=== PATIENT | male | born 1955 | race Caucasian/White ===

== ENCOUNTER 2019-08-03 10:25 | Outpatient (CLI) | payer BC, SELFPAY ==
--- NOTE | ~2019-08-03 | XR_ITS ---
EXAMINATION: XR hip LT min 2V DATE: 08/03/2019 11:03 INDICATION: Left hip pain. TECHNIQUE: 2 views of left hip were obtained. COMPARISON: None. FINDINGS: Bone alignment is normal. No fracture. There is mild left hip osteoarthritis. IMPRESSION: 1. Mild left hip osteoarthritis. Reviewed, dictated and finalized at location A.
== END 2019-08-03 10:26 | disposition home or self-care (01) ==
LOC: CHSLAB 10:26 → CHSIMG 10:29
PROVIDERS: PCP Family Medicine; Visit Provider Family Medicine
DX: R09.89 Other specified symptoms and signs involving the circulatory and respiratory systems (principal); M25.552 Pain in left hip
CPT/HCPCS: 73502

== ENCOUNTER 2019-08-06 10:42 | Outpatient (CLI) | payer BC, SELFPAY ==
--- NOTE | ~2019-08-06 | US_ITS ---
EXAMINATION: US arterial ankle brachial ind DATE: 08/06/2019 12:09 INDICATION: Peripheral arterial disease. TECHNIQUE: Segmental pressures and plethysmographic and Doppler waveforms of the brachial and lower e xtremity arteries were obtained. COMPARISON: None. FINDINGS: Right and left brachial artery pressures of 145 mm Hg and 142 mm Hg, respectively, are concordant (no rmal difference <= 30 mmHg). The right ankle-brachial index (YANDEL) is 1.07 (normal >= 0.9-1.0). The right great toe-brachial index (TBI) is 0.73 (normal >= 0.65). Arterial Doppler waveforms are biphasic in posterior tibial artery an d biphasic in dorsalis pedis. The left YANDEL is 0.77. The left TBI is 0.47. Arterial Doppler waveforms are biphasic in posterior tibi al artery and monophasic and dorsalis pedis. IMPRESSION: 1. Mildly decreased left YANDEL, consistent with left-sided arterial occlusive disease. Reviewed, dictated and finalized at location A. IMPRESSION: 1. Mildly decreased left YANDEL, consistent with left-sided arterial occlusive dis ease.
== END 2019-08-06 10:43 | disposition home or self-care (01) ==
PROVIDERS: PCP Family Medicine; Visit Provider Family Medicine
DX: R09.89 Other specified symptoms and signs involving the circulatory and respiratory systems (principal)
CPT/HCPCS: 93922

== ENCOUNTER 2020-01-14 11:14 | Outpatient (CLI) | payer BC, SELFPAY ==
--- NOTE | ~2020-01-14 | XR_ITS ---
EXAMINATION: XR shoulder RT min 2V DATE: 01/14/2020 11:31 INDICATION: Right shoulder pain. TECHNIQUE: 4 views of right shoulder were obtained. COMPARISON: None. FINDINGS: Bone alignment is normal. No fracture. There is mild osteoarthritis of glenohumeral joint a nd acromioclavicular joint characterized by tiny osteophytes. IMPRESSION: 1. Mild polyarticular osteoarthritis. Reviewed, dictated and finalized at location B. WORKER
== END 2020-01-14 11:15 | disposition home or self-care (01) ==
LOC: CHSIMG 11:15
PROVIDERS: PCP Family Medicine; Visit Provider Family Medicine
DX: M25.511 Pain in right shoulder (principal)
CPT/HCPCS: 73030

== ENCOUNTER 2020-01-17 09:55 | Outpatient (RCR) | payer BC, SELFPAY ==
--- NOTE | 2020-01-17 10:55 | PTOPEVAL ---
Thank you for referring Roberto Syed to [facility].? The patient is scheduled to be seen for therapy? ____x/week for ___ weeks. Please review, sign, date and return this plan of care MATT. I agree with and certify that the following plan of care is medically necessary. Referring Physician Date Admitting Provider: Attending Provider: Antoni Barth MD Referring Provider: *PT Outpatient Evaluation Start: 01/17/20 10:04 Freq: Status: Active Protocol: Document 01/17/20 10:05 Kaitlin (Rec: 01/17/20 10:54 [facility] [id number]) Therapy Assessment Status Assessment Status Assessment Status Evaluation Evaluation Information Problem Diagnosis R shoulder pain Onset 01/15/20 Additional Evaluation Detail quick dash = 38% Subjective Information patient reports he injured his Query Text:As Reported By Patient/ R shoulder when lifting a Family large bag of concrete. he reports the pain is already about 50% better, but reports he is still having issues. he reports no injection or medications. he reports he did have an x-ray. he reports he has pain directly in the shoulder and has sharp pain with lifting his arm up. he reports no symptoms of radiculopathy down the arm. he reports he has pain increased in the R shoulder about 30-40 degrees infront of his body. he reports the injury occured about 1 week ago. Prior Level of Function Comments Additional Prior Level of Function prior to this new injury, he Comments reports some soreness at times in the shoulder, but nothing that would last more than a nights rest after work. Pain Assessment Timing of Pain Assessment Timing of Pain Assessment Assessment Pain Scale Pain Scale Used Numeric (1 - 10) Self Report Pain Assessment Right Shoulder(s) Reported Pain Level 2 Pain Frequency Acute,Chronic,Continuous Lowest Pain Intensity 2 Greatest Pain Intensity 10 Pain Score Pain Score 2: Self Report Interventions Used Interventions Used By Clinicians Activity or ADL's,Education, Environment Modification, Exercise,Heat Upper Extremity Range of Motion Scapu
== END 2020-02-14 08:38 | disposition home or self-care (01) ==
LOC: CHSPT 09:55
PROVIDERS: PCP Family Medicine; Visit Provider Family Medicine
DX: M25.511 Pain in right shoulder (principal)
CPT/HCPCS: 97014; 97110; 97140; 97161; G0283

== ENCOUNTER → 2020-04-01 17:08 | Outpatient (CLI) | payer BC, SELFPAY ==
--- NOTE | ~2020-04-01 | MR_ITS ---
EXAMINATION: MR shoulder RT wo con DATE: 04/01/2020 18:03 INDICATION: Right shoulder pain. TECHNIQUE: Magnetic resonance imaging (MRI) of the right shoulder was performed without intravenous c ontrast. Sequences included axial PD-weighted FS FSE, coronal oblique PD-weighted FS FSE, coronal obl ique T2-weighted FS FSE, sagittal PD-weighted FS FSE, and sagittal T1-weighted SE. COMPARISON: None. FINDINGS: Coracoacromial arch: The acromion undersurface is curved in morphology (type II). The coracoacromial ligament is normal. M oderate acromioclavicular osteoarthritis with prominent subarticular cystic changes at both sides of the joint space. Rotator cuff: Moderate supraspinatus and mild infraspinatus tendinopathy. There is partial thickness articular side d tear extending for approximately 1.6 similar AP along the superior and anterior aspect of the middl e facet footplates of the supraspinatus and conjoined portion of the supraspinatus and infraspinatus tendons. Throughout the majority of its length this involves approximately one half of the tendon thi ckness. 1.5 cm medial retraction of some of the torn articular sided fibers. The tear reaches full-th ickness for couple millimeter at the junction of the superior and middle facet footplates. Mild to mo derate subscapularis tendinopathy without discrete tear. The teres minor tendon is normal. Normal rot ator cuff muscle bulk and signal. Biceps tendon, glenoid labrum and glenohumeral cartilage: Moderate tendinopathy and longitudinal split tearing of the long head biceps tendon most prominent at the cephalad aspect of the intertubercular groove. There is a tear of the 12:30-10:30 position of th e superior to posterior superior glenoid labrum. Articular cartilage appears relatively preserved. Ti ny marginal osteophytes along the inferior glenoid. Fluid: Small glenohumeral joint effusion with mild synovitis at the axillary, posterior and subcoracoid rece sses.No loose osteochondral bodies. Additional fluid and moderate synovitis along the long head bicep s tendon sheath consistent with bicipital tenosynovitis. Small amount of fluid and moderate synovitis at the subacromial/subdeltoid bursa consistent with bursitis. Bones: Bone alignment is normal. No fracture or pathologic marrow replacing process. Mild cystic change at t he confluence of the superior facet of the greater tuberosity and the lateral rim of the intertubercu lar groove. IMPRESSION: 1. Mild to moderate rotator cuff tendinopathy with small full-thickness tear of the conjoined portion of the supraspinatus/infraspinatus tendons as part of a larger partial-thickness articular sided tea r of the more anterior supraspinatus tendon. 2. Moderate bicipital tenosynovitis with moderate tendinopathy and longitudinal split tearing of the long head biceps tendon. 3. Minimal glenohumeral osteoarthritis with tear of the superior to posterior superior glenoid labrum . 4. Moderate acromioclavicular osteoarthritis. 5. Moderate subacromial/subdeltoid bursitis. Reviewed, dictated and finalized at location B. [employer] IMPRESSION: 1. Mild to moderate rotator cuff tendinopathy with small full-thickness tear of the conjoined portion of the supraspinatus/infraspinatus tendons as part of a larger partial-thickness articular sided tear of the more anterior supraspinatu s tendon. 2. Moderate bicipital tenosynovitis with moderate tendinopathy and longitudinal split tearing of the long head biceps tendon. 3. Minimal glenohumeral osteoarthritis with tear of the superior to posterior s uperior glenoid labrum. 4. Moderate acromioclavicular osteoarthritis. 5. Moderate subacromial/subdeltoid bursitis.
== END ==
PROVIDERS: PCP Family Medicine; Visit Provider Family Medicine
DX: M19.011 Primary osteoarthritis, right shoulder (principal); M75.51 Bursitis of right shoulder; M75.21 Bicipital tendinitis, right shoulder; M75.101 Unspecified rotator cuff tear or rupture of right shoulder, not specified as traumatic
CPT/HCPCS: 73221

== ENCOUNTER 2020-06-28 11:19 | Outpatient (CLI) | payer BC, SELFPAY ==
[2020-06-28 12:04] LABS: SARS-CoV-2 RNA PCR Negative (Negative)
== END 2020-06-28 11:20 | disposition home or self-care (01) ==
LOC: CHSLAB 11:20
PROVIDERS: PCP Family Medicine; Visit Provider Family Medicine
DX: Z20.818 Contact with and (suspected) exposure to other bacterial communicable diseases (principal); Z20.822 Contact with and (suspected) exposure to COVID-19
CPT/HCPCS: C9803; U0003; U0005

== ENCOUNTER 2020-09-25 08:52 | Outpatient (RCR) | payer BC, SELFPAY ==
--- NOTE | 2020-09-25 09:57 | PTOPEVAL ---
Thank you for referring Roberto Syed to [facility].? The patient is scheduled to be seen for therapy? ____x/week for ___ weeks. Please review, sign, date and return this plan of care MATT. I agree with and certify that the following plan of care is medically necessary. Referring Physician Date Admitting Provider: Attending Provider: MARISELA WOODS Referring Provider: *PT Outpatient Evaluation Start: 09/25/20 08:56 Freq: Status: Active Protocol: Document 09/25/20 08:56 ACR (Rec: 09/25/20 09:56 [facility] [id number]) Therapy Assessment Status Assessment Status Assessment Status Evaluation Evaluation Information Problem Diagnosis R RTC repair Onset 07/01/20 Subjective Information Patient states he was loading Query Text:As Reported By Patient/ bags of cement where he tore Family his rotator cuff and had to undergo a RTC repair. Patient states he was in a sling for about a month after the surgery. Patient states he was told to only lift a coffee cup, but he lives alone and has to lift other things such as a laundry basket. Patient states that lifting is difficult, but does not have much difficulty otherwise. Patient states his goal for therapy is to get back to work safely. He has to be able to lift 85# for his job. 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
--- NOTE | 2020-10-29 10:06 | PTOPEVAL ---
Thank you for referring Roberto Syed to [facility].? The patient is scheduled to be seen for therapy? ____x/week for ___ weeks. Please review, sign, date and return this plan of care MATT. I agree with and certify that the following plan of care is medically necessary. Referring Physician Date Admitting Provider: Attending Provider: MARISELA WOODS Referring Provider: *PT Outpatient Evaluation Start: 09/25/20 08:56 Freq: Status: Active Protocol: Document 10/29/20 08:55 Kaitlin (Rec: 10/29/20 10:06 [facility] [id number]) Therapy Assessment Status Assessment Status Assessment Status Progress Evaluation Information Problem Diagnosis R RTC repair Onset 07/01/20 Additional Evaluation Detail quick dash = 0% functionally declined Subjective Information patient reports he feels good Query Text:As Reported By Patient/ this date. he reports he Family returns to the MD next week when he is hoping to have his lifting restriction assesed and increased. he reports he has no pain in the R shoulder. he reports he still feels weak in the R shoulder. Pain Assessment Timing of Pain Assessment Timing of Pain Assessment Assessment Self Report Self Report Pain Level 0 Pain Score Pain Score 0: Self Report Upper Extremity Range of Motion Scapular/ Shoulder Range of Motion Left Shoulder Flexion - Active 165 Shoulder Medial Rotation - Active 70 Shoulder Lateral Rotation - Active 85 Scapular/Shoulder Range of Motion patient presents with full Comments functional arom reaching overhead, behind head to the upper thoracic spine, and behind back to the lower/ middle thoracic spine. Upper Extremity Muscle Strength Testing Scapular/Shoulder Right Shoulder Flexion Strength 4- Good - Shoulder Abduction Strength 4- Good - Shoulder Medial Rotation Strength 4+ Good + Shoulder Lateral Rotation Strength 4 Good Posture Posture Sitting Position Additional Posture Comments R shoulder elevation with shoudler flexion and abduction mmt. General Exercise General Exercises Exercise Description - UBE 8 minutes fwd and rev Query Text:Record Sets, Reps, with heat on R shoulder level Resistance, and Position 2 - supine shoulder flexion 2# x20 - supine press up 2# x
== END 2020-12-03 13:31 | disposition home or self-care (01) ==
LOC: CHSPT 08:52
DX: S46.011D Strain of muscle(s) and tendon(s) of the rotator cuff of right shoulder, subsequent encounter (principal); S46.211D Strain of muscle, fascia and tendon of other parts of biceps, right arm, subsequent encounter; M75.41 Impingement syndrome of right shoulder
CPT/HCPCS: 97110; 97161

== ENCOUNTER → 2021-04-03 02:50 | Outpatient (CLI) | payer BC, SELFPAY ==
[2021-04-03 18:24] LABS: SARS-CoV-2 RNA PCR Negative
== END ==
PROVIDERS: PCP Family Medicine; Visit Provider Internal Medicine Gastroenterology
DX: Z01.812 Encounter for preprocedural laboratory examination (principal); Z20.822 Contact with and (suspected) exposure to COVID-19
CPT/HCPCS: C9803; U0003; U0005

== ENCOUNTER 2021-04-06 00:56 | Day surgery (SDC) | payer BC, SELFPAY ==
[2021-04-02 11:14] VITALS: BMI 20.3
[2021-04-06 08:35] VITALS: BP 136/79; PULSE 80; RESP 18; TEMP 36.4; O2SAT 99; BMI 19.3
[2021-04-06] MEDS: LACTATED RINGERS 1,000 ML 150 ML IV CONT (08:46)
--- NOTE | 2021-04-06 08:46 | P.PNAN_ITS ---
Anes - Initial Pre Proc Eval Procedure: Operation Date: 04/06/21 09:30 Proposed Procedures p Colonoscopy - Georges Jacobson MD Date/Time: 04/06/21 08:46 Surgeon: Georges Jacobson MD Pre Op Diagnosis: Rectal bleeding Patient Data Age: 65 Gender: M Height: 1.75 m Weight: 59.2 kg Last Vital Signs Temp 36.4 C 04/06/21 08:35 Pulse 80 04/06/21 08:35 Resp 18 04/06/21 08:35 BP 136/79 04/06/21 08:35 Pulse Ox 99 04/06/21 08:35 Allergies Allergy/AdvReac Type Severity Reaction Status Date / Time No Known Allergies Allergy Verified 04/06/21 08:35 Home Medications Medication Instructions Recorded Confirmed Type atorvastatin 40 mg tablet 40 mg PO DAILY 03/24/21 04/02/21 History cilostazol 100 mg tablet 100 mg PO BID 03/24/21 04/02/21 History metoprolol succinate 25 mg 25 mg PO QPM 03/24/21 04/02/21 History tablet,extended release 24 hr clopidogrel 75 mg PO DAILY 04/02/21 04/02/21 History Patient hx anesthesia problems: none Family hx anesthesia problems: none Results Review: All pre-operative results and documents have been reviewed as part of the pre-operative evaluation. [facility] Past Medical History Medical History Arthritis Blood in stool History of hemorrhoids Hypertension Surgical History Surgical History History of colonoscopy Family History Family History Mother Cancer Social History Social History Smoking packs per day: 1.5 Smoking cigarettes per day: 30.0 Years smoked: 50 Smoking pack-years: 75.00 Smoking status: Heavy tobacco smoker Tobacco type: cigarettes Alcohol intake: current Drinks per week: 12 Alcohol use details: Beer Substance use: never Substance use type: does not use Living arrangements: with family Spiritual care concerns: No Anes - Eval Final PreProcedure Day of Procedure 04/06/21 08:46 Patient weight: thin Heart: regular rate and rhythm Lungs: decreased breath sounds and wheezes Airway: Mallampati scale class II Neurological: alert and oriented Last oral intake: >/= 8 hours ASA classification: III Emergent: no Anesthetic plan: proceed Anesthesia type and monitoring: general GIVS and standard monitoring Results Review: All pre-operative results and documents have been reviewed as part of the pre-operative evaluation. Informed Consent: The patient's anesthetic plan and its attendant risks and benefits were discussed with the patient/family/POA. Questions were solicited and answers provided to the satisfaction of the patient/family/POA.
--- NOTE | 2021-04-06 09:09 | WPDHPUPDATE1 ---
History and Physical Update Update Date/Time: 04/06/21 09:09 History and Physical has been reviewed, including an updated exam of the patient. There are NO changes in the patient's condition. Risks, benefits, and alternatives have been discussed and questions answered. Patient agrees to proceed with procedure.
[2021-04-06 09:38] VITALS: BP 107/63; PULSE 80; RESP 17; O2SAT 99
[2021-04-06 09:48] VITALS: BP 142/81; PULSE 86; RESP 20; O2SAT 95
[2021-04-06 09:58] VITALS: BP 155/85; PULSE 80; RESP 22; O2SAT 100
== END 2021-04-06 10:02 | disposition home or self-care (01) ==
PROVIDERS: PCP Family Medicine; Visit Provider Internal Medicine Gastroenterology
PROC: 0DJD8ZZ Inspection of Lower Intestinal Tract, Via Natural or Artificial Opening Endoscopic (ICD-10-PCS; CPT 45378; principal; 2021-04-06 09:30)
DX: Z12.11 Encounter for screening for malignant neoplasm of colon (principal); K92.1 Melena; D12.3 Benign neoplasm of transverse colon; K63.5 Polyp of colon; K57.30 Diverticulosis of large intestine without perforation or abscess without bleeding; K64.8 Other hemorrhoids; I10 Essential (primary) hypertension; Z79.02 Long term (current) use of antithrombotics/antiplatelets; F17.210 Nicotine dependence, cigarettes, uncomplicated
CPT/HCPCS: 45385; 88305; J2704; J7120

== ENCOUNTER 2021-11-02 11:00 | Outpatient (CLI) | payer BC, SELFPAY ==
--- NOTE | ~2021-11-02 | XR_ITS ---
EXAMINATION:XR cervical spine 4-5V DATE: 11/02/2021 11:26 INDICATION: Neck pain radiating to the shoulders. TECHNIQUE: AP, lateral, odontoid and left and right oblique views of the cervical spine were obtained . COMPARISON: 04/06/2018 FINDINGS: Interval increase in now 3-4 mm anterolisthesis of C4 on C5. Unchanged 2 mm retrolisthesis C6 with re spect to both C5 and C7. Odontoid is intact. Normal atlantoaxial interval. Vertebral body heights ar e normal. Moderate disc height loss at C6-C7, mild to moderate disc height loss at C5-C6 and mild dis c height loss at C4-C5 and C7-T1. Multilevel moderate to severe cervical facet osteoarthritis most pr ominent on the left at C3-C4 and C4-C5 and on the right at C4-C5 through C6-C7. Multilevel moderate t o severe cervical uncovertebral osteoarthritis. . This results in multilevel mild bilateral neural fo raminal stenosis. Atherosclerotic calcifications at the bilateral carotid bulbs. Prevertebral soft ti ssues are normal. Visualized apices of lungs are clear. IMPRESSION: 1. Moderate cervical spondylosis including grade 1 spondylolisthesis slightly increased at C4-C5 and unchanged at C5-6 and C6-C7. Reviewed, dictated and finalized at location A. IMPRESSION: 1. Moderate cervical spondylosis including grade 1 spondylolisthesis slightly i ncreased at C4-C5 and unchanged at C5-6 and C6-C7.
== END 2021-11-02 11:01 | disposition home or self-care (01) ==
LOC: CHSIMG 11:02
PROVIDERS: PCP Family Medicine; Visit Provider Family Medicine
DX: M54.2 Cervicalgia (principal)
CPT/HCPCS: 72050

== ENCOUNTER 2021-11-04 11:00 | Outpatient (RCR) | payer BC, SELFPAY ==
--- NOTE | 2021-11-04 11:39 | PTOPEVAL1 ---
Evaluation Information Assessment Status Evaluation Diagnosis neck pain/cerviclagia Onset 11/02/21 Subjective Information patient reports he had had a pinched nerve in the neck in the past that he had surgery to fix. he reports this wa yeasrs ago and he has felt good since. he reports he is unsure what kind of surgery he had performance. he reports a few months ago he began having a similar feeling in the neck again. he reports he does have some tightness in the L hand (middle and ring finger) at times. he reports he has had xrays of the cervical spine and reports he has DDD of the cervical spine. he reports he was given oral meds for his symptoms and sent to PT. he reports he has increase pain with driving when turning to look behind him both sides. he reports he is still working at the [employer]. Reported Pain Level Pain Score 2: Self Report Assessment PT Clinical Summary mr. saeed presents to skilled PT services for evaluation and treatment of cervical pain. he presents this date with signs and symptoms of DDD/ spondylosis of the cervical spine with worsening arthritis on the L side. he would do well to attend and participate in skilled PT to improve his objective/functional deficits and progress towards a return to his prior level functional activity performance/quality of life. Plan of Care Interventions Electrical Stimulation,Hot Pack/Cold Pack,Manual Therapy,Mechanical Traction,Patient/Caregiver Educati,Therapeutic Activities,Therapeutic Exercise PT Services Indicated Yes Treatment Frequency and 3x weekly for 12 visits Duration These treatments will address the objective and functional deficits as defined above. The patient will be advanced safely and appropriately in order for the patient to progress towards his/her prior level of function. Additional exercises will be introduced and as well as a comprehensive home exercise program upon discharge, if needed, ?to ensure carryover of functional gains achieved in the clinic. This treatment plan has been reviewed and agreement upon by the patient.
== END 2021-12-04 15:27 | disposition home or self-care (01) ==
LOC: CHSPT 11:00
PROVIDERS: PCP Family Medicine; Visit Provider Family Medicine
DX: M54.2 Cervicalgia (principal)
CPT/HCPCS: 97012; 97014; 97110; 97140; 97161; G0283

== ENCOUNTER 2021-11-11 16:00 | Outpatient (CLI) | payer BC, SELFPAY ==
--- NOTE | ~2021-11-11 | CT_ITS ---
EXAMINATION: CT lung screening DATE: 11/11/2021 16:19 INDICATION: Personal history of nicotine dependence, current smoker with 60 pack year history TECHNIQUE: Computed tomography (CT) of the chest was performed without intravenous contrast. The dose -length product (DLP) was 77.01 mGy-cm. Automated exposure control and iterative reconstruction techn [employer] were employed. COMPARISON: 03/14/2019 FINDINGS: There is a stable 4 mm nodule of the right lower lobe. There is moderate emphysema. The roxanne gs are free of acute opacities. No pleural effusion or pneumothorax. No pathologically enlarged thora cic lymph nodes are identified. The heart size is normal. Calcified coronary artery atherosclerosis i s noted. There is mild thoracic spondylosis. IMPRESSION: 1. Lung-RADS category 2: Benign appearance or behavior. Continue annual screening with noncontrast lo w-dose chest CT in 12 months. Reviewed, dictated and finalized at location B. IMPRESSION: 1. Lung-RADS category 2: Benign appearance or behavior. Continue annual screeni ng with noncontrast low-dose chest CT in 12 months.
== END 2021-11-11 16:01 | disposition home or self-care (01) ==
LOC: CHSIMG 16:02
PROVIDERS: PCP Family Medicine; Visit Provider Family Medicine
DX: Z12.2 Encounter for screening for malignant neoplasm of respiratory organs (principal); Z87.891 Personal history of nicotine dependence
CPT/HCPCS: 71271

== ENCOUNTER 2022-01-09 09:19 | Outpatient (CLI) | payer BC, SELFPAY ==
--- NOTE | ~2022-01-09 | MR_ITS ---
EXAMINATION: MR cervical spine w con DATE: 01/09/2022 10:23 INDICATION: Neck pain. TECHNIQUE: Magnetic resonance imaging (MRI) of the cervical spine was performed with 10 mL MultiHance intravenous contrast. COMPARISON: Cervical spine radiographs 11/02/2021 FINDINGS: There is 12 degrees levoscoliosis of cervical spine. There is 2 mm anterolisthesis of C4 on C5 and C5 and C6 and 2 mm retrolisthesis of C7 on T1. Vertebral body heights are normal. There is en hancement in anterior C1 and in the dens, likely secondary to severe osteoarthritis of anterior atlan toaxial joint. There is mildly decreased disc height at C4-C5 and C5-C6 and moderately decreased disc height at C6-C7. The following disc levels are specifically discussed: C2-C3: There is a central protrusion. There is mild left uncovertebral joint osteoarthritis. There is moderate right and severe left facet joint osteoarthritis. There is mild left neural foraminal steno sis. There is no central canal stenosis. C3-C4: The disc does not extend beyond the endplate margin. There is mild bilateral uncovertebral cristian nt osteoarthritis. There is moderate bilateral facet joint hypertrophy. There is mild bilateral neura l foraminal stenosis. There is no central canal stenosis. C4-C5: The disc is bulging. There is mild bilateral uncovertebral joint osteoarthritis. There is mild bilateral facet joint hypertrophy. There is mild bilateral neural foraminal stenosis. There is mild central canal stenosis. C5-C6: The disc is bulging. There is mild bilateral uncovertebral joint osteoarthritis. There is mode rate bilateral facet joint osteoarthritis. There is mild bilateral neural foraminal stenosis. There i s mild central canal stenosis. C6-C7: The disc is bulging. There is severe bilateral uncovertebral joint osteoarthritis. There is mi ld bilateral facet joint osteoarthritis. There is mild bilateral neural foraminal stenosis. There is mild central canal stenosis. C7-T1: The disc does not extend beyond the endplate margin. There is no uncovertebral joint osteoarth ritis. There is severe right and moderate left facet joint osteoarthritis. There is mild bilateral ne ural foraminal stenosis. There is no central canal stenosis. IMPRESSION: 1. Moderate cervical spondylosis. Reviewed, dictated and finalized at location A. [employer] SUPER[employer]
== END 2022-01-09 09:20 | disposition home or self-care (01) ==
LOC: CHSIMG 09:20
PROVIDERS: PCP Family Medicine; Visit Provider Family Medicine
DX: M54.2 Cervicalgia (principal)
CPT/HCPCS: 72142; A9577

== ENCOUNTER 2022-02-22 08:33 | Outpatient (CLI) | payer BC, SELFPAY ==
--- NOTE | ~2022-02-22 | CT_ITS ---
EXAMINATION: CT cervical spine wo con DATE: 02/22/2022 09:22 INDICATION: Decreased range of motion of cervical spine. TECHNIQUE: Computed tomography (CT) of the cervical spine was performed without intravenous contrast. Automated exposure control and iterative reconstruction technique were employed. The dose-length pro duct was 266.18 mGy-cm. COMPARISON: Cervical spine radiographs 09/22/2021 FINDINGS: Emphysema is noted. There is 12 degrees levoscoliosis of cervical spine. There is 3 mm ante rolisthesis of C4 on C5 and C5 on C6 and 2 mm retrolisthesis of C6 on C7. There is mild chronic anter ior wedging of C7 vertebral body. There is mildly decreased disc height at C3-C4, moderately decrease d disc height at C4-C5 and C5-C6, and severely decreased disc height at C6-C7. The following disc lev els are specifically discussed: C2-C3: There is mild right and severe left uncovertebral joint osteoarthritis. There is severe bilate ral facet joint osteoarthritis. There is mild left neural foraminal stenosis. There is no central can al stenosis. C3-C4: There is mild right and severe left uncovertebral joint osteoarthritis. There is severe bilate ral facet joint osteoarthritis. There is mild bilateral neural foraminal stenosis. There is no centra l canal stenosis. C4-C5: There is severe right and mild left uncovertebral joint osteoarthritis. There is severe bilate ral facet joint osteoarthritis. There is mild bilateral neural foraminal stenosis. There is mild cent ral canal stenosis. C5-C6: There is severe right and mild left uncovertebral joint osteoarthritis. There is severe bilate ral facet joint osteoarthritis. There is moderate right and mild left neural foraminal stenosis. Ther e is mild central canal stenosis. C6-C7: There is severe bilateral uncovertebral joint osteoarthritis. There is severe right and modera te left facet joint osteoarthritis. There is mild bilateral neural foraminal stenosis. There is mild central canal stenosis. C7-T1: There is no uncovertebral joint osteoarthritis. There is severe bilateral facet joint osteoart hritis. There is mild right neural foraminal stenosis. There is no central canal stenosis. IMPRESSION: 1. Severe cervical spondylosis. 2. Cervical levoscoliosis. Reviewed, dictated and finalized at location A. ORT COORDINATOR
--- NOTE | ~2022-02-22 | XR_ITS ---
Cervical Spine: Lateral flexion-extension views were performed. COMPARISON: 11/02/2021 Clinical History: Decreased range of motion Findings: Stable grade 1 anterolisthesis of C4 over C5. Stable minimal grade 1 retrolisthesis of C5 o bharat C6 and C6 over C7. No definite instability seen on flexion or extension. The intervertebral disc spaces are well maintained. Pre-vertebral soft tissues are unremarkable. Impression: Stable subluxations in the cervical spine, as detailed above. No definite instability seen on flexion or extension. Reviewed, dictated and finalized at location [] TWISTING MACHINE OPERATOR Impression: Stable subluxations in the cervical spine, as detailed above. No definite insta bility seen on flexion or extension.
== END 2022-02-22 08:34 | disposition home or self-care (01) ==
LOC: CHSIMG 08:34
PROVIDERS: PCP Family Medicine; Visit Provider Neurological Surgery
DX: M54.2 Cervicalgia (principal); M47.812 Spondylosis without myelopathy or radiculopathy, cervical region; M41.82 Other forms of scoliosis, cervical region
CPT/HCPCS: 72040; 72125

== ENCOUNTER 2022-03-20 06:42 | Outpatient (CLI) | payer BC, SELFPAY ==
--- NOTE | ~2022-03-20 | MR_ITS ---
MRI of the cervical spine Clinical History: Cervicalgia Technique: Axial T2-weighted and gradient images, and sagittal T1-weighted, T2-weighted, and STIR lashon ges were acquired. COMPARISON: 01/09/2022 Findings: No acute fracture identified. Osseous alignment is similar to prior exam. Stable 3 mm anter olisthesis of C4 over C5. Stable minimal grade 1 anterolisthesis of C5 over C6. No suspicious bone ma rrow signal abnormality identified. At C2-C3, there is no significant disc bulge or herniation. No spinal canal stenosis, cord compressio n, or neural foraminal narrowing. There is mild left facet joint arthropathy. At C3-C4, there is mild left facet arthropathy. No disc bulge or herniation. No spinal canal stenosis , cord compression, or definite neural foraminal narrowing. At C4-C5, there is mild disc uncovering with mild facet arthropathy. No eileen spinal canal stenosis o r cord compression. There is probable mild bilateral neural foraminal narrowing. At C5-C6, there is mild disc bulge which mildly flattens the ventral cord. Probable minimal bilateral neural foraminal narrowing. At C6-C7, there is minimal disc bulge with mild canal stenosis but no eileen cord compression. Probabl e minimal bilateral neural foraminal narrowing. No abnormal signal seen in the spinal cord. Paravertebral soft tissues are unremarkable. Impression: Mild degenerative spondylosis, as detailed above. 3 mm anterolisthesis of C4 over C5. Additional minimal grade 1 anterolisthesis of C5 over C6. Reviewed, dictated and finalized at [facility]. ICATION DEVELOPMENT INTERN Impression: Mild degenerative spondylosis, as detailed above. 3 mm anterolisthesis of C4 over C5. Additional minimal grade 1 anterolisthesis of C5 over C6.
== END 2022-03-20 06:43 | disposition home or self-care (01) ==
PROVIDERS: PCP Family Medicine; Visit Provider Neurological Surgery
DX: M54.2 Cervicalgia (principal); M43.02 Spondylolysis, cervical region; M43.12 Spondylolisthesis, cervical region
CPT/HCPCS: 72141

== ENCOUNTER 2023-05-20 14:09 | Outpatient (CLI) | payer MEDICARE, SELFPAY ==
--- NOTE | ~2023-05-20 | CT_ITS ---
EXAMINATION: CT lung screening DATE: 05/20/2023 14:29 INDICATION: Personal history of nicotine dependence TECHNIQUE: Computed tomography (CT) of the chest was performed without intravenous contrast. Addition al 3D reconstructions utilizing coronal maximum intensity projection (MIP) were performed. Automated exposure control and iterative reconstruction technique were employed. The dose-length product was 73 .58 mGy-cm. COMPARISON: 11/11/2021 FINDINGS: Mild to moderate emphysema with minimal biapical pleural-parenchymal scarring. Again seen are a few s mall calcified pulmonary nodules in the right lung consistent with old granulomatous disease. No inte rval change in a noncalcified 4 mm right lower lobe nodule most likely sequela of old granulomatous d isease. No new or enlarging pulmonary nodules identified. No pneumonia, pulmonary edema or pleural ef fusion. Heart size is normal. No pericardial effusion. Atherosclerotic coronary artery calcifications . Thoracic aorta is normal in caliber. No pathologically enlarged abdominal or pelvic lymphadenopathy . 1.8 cm low-attenuation right renal cyst. Mild to moderate thoracic spondylosis. IMPRESSION: 1. Lung-RADS category 2: Benign appearance or behavior. Continue annual screening with noncontrast lo w-dose chest CT in 12 months. Reviewed, dictated and finalized at location B. IMPRESSION: 1. Lung-RADS category 2: Benign appearance or behavior. Continue annual screeni ng with noncontrast low-dose chest CT in 12 months.
== END 2023-05-20 14:10 | disposition home or self-care (01) ==
LOC: CHSIMG 14:12
PROVIDERS: PCP Family Medicine; Visit Provider Family Medicine
DX: Z12.2 Encounter for screening for malignant neoplasm of respiratory organs (principal); Z87.891 Personal history of nicotine dependence
CPT/HCPCS: 71271

== ENCOUNTER 2023-07-09 08:11 | Outpatient (CLI) | payer MEDICARE, SELFPAY ==
--- NOTE | 2023-07-09 08:29 | ECG_ITS ---
SEE SCANNED COPY FOR CONFIRMED REPORT MTDD
== END 2023-07-09 08:12 | disposition home or self-care (01) ==
PROVIDERS: PCP Family Medicine; Visit Provider Anesthesiology
DX: I10 Essential (primary) hypertension (principal); Z01.818 Encounter for other preprocedural examination
CPT/HCPCS: 93005

== ENCOUNTER 2023-07-11 01:34 | Day surgery (SDC) | payer MEDICARE, SELFPAY ==
--- NOTE | 2023-07-08 11:05 | PC.NURSE ---
Report to the Outpatient Waiting Room, entrance under the green pavilion located off [facility], at time __0700 on date __07/11/23 . Planned Procedure Time: _0900 . Time changes happen often and if your time is changed the preop area will call you the afternoon before. - You and your visitor will be asked to self-screen and do not enter if you have any COVID symptoms. - A mask is optional within the hospital at this time. Patients may have clear liquids (water, carbonated beverages, clear teas, apple juice) until 3 hours prior to surgery( 6:00 AM) with a maximum of 20 ounces. - No food from midnight until time of surgery - Infants may have breast milk until 4 hours before surgery, formula 6 hours prior to surgery. - Children will be allowed to drink immediately following surgery. If applicable, please bring a bottle or sippy cup to assist with drinking. Juice, water, soda, and popsicles are readily available. For infants on formula, please bring formula the day of surgery. Pacifiers are allowed. Take the following medications with a SIP of water the morning of surgery: ___NONE DO NOT STOP ANY OF YOUR OTHER PRESCRIPTION MEDICATIONS PRIOR TO SURGERY ?EXCEPT THE FOLLOWING Medications to discontinue per physician NONE Please no make-up, nail greenlandic, hairspray, perfume, deodorant, or body powder the day of surgery. No jewelry (including any body piercings) or valuables the day of surgery, leave them at home. Please take a shower or bath the night before, or the morning of, surgery with an antibacterial soap. Wear comfortable, loose fitting clothing. Children are encouraged to wear pajamas. - Jewelry must be removed prior to entering the operating room. Rings and piercings that are not removed may be cut off. - The hospital will not accept responsibility for valuables. - Please leave all valuables, including medications, at home the day of surgery. If you are going home after surgery, a licensed hi low truck driver must drive you home. - NO public transportation without another adult if you receive anesthesia. - We recommend that an adult stay with you for 24 hours following discharge. - We also recommend that you do not drive, make important decision, drink alcoholic beverages, or take any drugs that were not prescribed by your health care provider for at least 24 hours after your discharge time. Follow any additional instructions given to you from your surgeon. If you or anyone in your household have experienced Covid symptoms in the past week, please notify your surgeon or the nurse liaison at the phone number below for possible testing. Telephone instructions given to __PATIENT and asked if any additional questions and then verbalized understanding. Patient advised to call surgeon office or pre surgery nurse liaison [phone] if any additional questions.
[2023-07-08 11:11] VITALS: BMI 19.8
[2023-07-11] VITALS (9 sets, daily range): BP systolic 131–165; BP diastolic 55–74; PULSE 60–77; RESP 10–18; TEMP 36.1–36.3; O2SAT 94–100
[2023-07-11] MEDS: ACETAMINOPHEN 500 MG TABLET 1000 MG PO (07:30)
[2023-07-11] MEDS: LACTATED RINGERS 1,000 ML 30 ML IV CONT ×2 (07:30→09:59)
--- NOTE | 2023-07-11 07:48 | P.PNAN_ITS ---
Anes - Initial Pre Proc Eval Procedure: Operation Date: 07/11/23 09:00 Proposed Procedures p Septoplasty, Bilateral Turbinate Reduction, Left Nasal Valve Repair - Russ Aguilar MD Date/Time: 07/11/23 07:48 Surgeon: Russ Aguilar MD Pre Op Diagnosis: deviated septum, turbinate hypertrophy Patient Data Age: 67 Gender: M Height: 1.73 m Weight: 58.99 kg Allergies Allergy/AdvReac Type Severity Reaction Status Date / Time No Known Allergies Allergy Verified 07/08/23 10:55 Home Medications Medication Instructions Recorded Confirmed Type cilostazol 100 mg tablet 100 mg PO BID 03/24/21 07/08/23 History metoprolol succinate 25 mg 25 mg PO QPM 03/24/21 07/08/23 History tablet,extended release 24 hr naproxen sodium 220 mg capsule 220 mg PO BID PRN Pain 07/08/23 07/08/23 History (Aleve) rosuvastatin 40 mg tablet 40 mg PO DAILY 07/08/23 07/08/23 History Patient hx anesthesia problems: none Family hx anesthesia problems: none Results Review: All pre-operative results and documents have been reviewed as part of the pre- operative evaluation. [facility] Past Medical History Medical History Arthritis Blood in stool History of hemorrhoids Hypertension Surgical History Surgical History History of colonoscopy Family History Family History Mother Cancer Social History Social History Smoking packs per day: 1.5 Smoking cigarettes per day: 30.0 Years smoked: 50 Smoking pack-years: 75.00 Smoking status: Current every day smoker Tobacco type: cigarettes Alcohol intake: current Drinks per week: 21 Alcohol use details: BEER Substance use: never Substance use type: does not use Living arrangements: alone Spiritual care concerns: No Anes - Eval Final PreProcedure Day of Procedure 07/11/23 07:48 Patient weight: normal Heart: regular rate and rhythm Lungs: clear to auscultation Airway: Mallampati scale class II Neurological: alert and oriented Last oral intake: >/= 8 hours ASA classification: III Emergent: no Anesthetic plan: proceed Anesthesia type and monitoring: general ETT and standard monitoring Results Review: All pre-operative results and documents have been reviewed as part of the pre- operative evaluation. Informed Consent: The patient's anesthetic plan and its attendant risks and benefits were discussed with the patient/family/POA. Questions were solicited and answers provided to the satisfaction of the patient/family/POA.
--- NOTE | 2023-07-11 08:27 | PM.IMHP ---
H&P: HPI History of Present Illness Date/Time: 07/11/23 08:27 Chief Complaint: Nasal dyspnea Review of Systems Review of Systems: All systems reviewed & are unremarkable except as noted in HPI and below PMFSH Past Medical History Medical History Arthritis Blood in stool History of hemorrhoids Hypertension Surgical History Surgical History History of colonoscopy Family History Family History Mother Cancer Social History Social History Smoking packs per day: 1.5 Smoking cigarettes per day: 30.0 Years smoked: 50 Smoking pack-years: 75.00 Smoking status: Current every day smoker Tobacco type: cigarettes Alcohol intake: current Drinks per week: 21 Alcohol use details: BEER Substance use: never Substance use type: does not use Living arrangements: alone Spiritual care concerns: No Meds Home Medications and Allergies Home Medications Medication Instructions Recorded Confirmed Type cilostazol 100 mg tablet 100 mg PO BID 03/24/21 07/11/23 History metoprolol succinate 25 mg 25 mg PO QPM 03/24/21 07/11/23 History tablet,extended release 24 hr naproxen sodium 220 mg capsule 220 mg PO BID PRN Pain 07/08/23 07/11/23 History (Aleve) rosuvastatin 40 mg tablet 40 mg PO DAILY 07/08/23 07/11/23 History Allergies Allergy/AdvReac Type Severity Reaction Status Date / Time No Known Allergies Allergy Verified 07/11/23 08:19 Vital Signs Vital Signs - 24 hr 07/11/23 07:30 Temperature 36.3 C L Pulse Rate 60 Respiratory Rate 16 Blood Pressure 131/55 L Pulse Oximetry 100 Oxygen Delivery Room Air Exam Narrative: Left septal deviation, left nasal valve collapse, rest of exam wnl Assessment and Plan Assessment and plan (1) Deviated nasal septum: Code(s): J34.2 - Deviated nasal septum Status: Acute Plan Deviated nasal septum, left nasal valve collapse. Here for septoplasty, turbinoplasty, left nasal valve repair via alar hu graft. r/b/a reviewed, all questions answered, pt understands and agrees to proceed. Refer to outpt H&P for further details.
--- NOTE | 2023-07-11 08:29 | W.PM.PROC2 ---
Procedure Note - Detailed Date of Procedure 07/11/23 Pre-op Diagnosis deviated septum, turbinate hypertrophy Post-op Diagnosis Same Procedure Performed Septoturbinoplasty, left nasal valve repair via alar hu grafting Surgeon Russ Aguilar MD Anesthesia General Indications Nasal dyspnea Findings Left septal deviation Description of Procedure After obtaining informed consent and proper site verification the patient was brought to the operating room and placed on the operating table in the supine position. They were placed under general endotracheal anesthesia by the anesthesia provider. The patient was then draped in standard fashion for septoplasty and turbinoplasty. A timeout was performed and the correct patient and procedure were verified. The nasal cavity was injected with 1% lidocaine with 1-100,000 epinephrine and packed with afrin-soaked cottonoid pledgets. Attention was then directed to the nasal septum. A hemitransfixion incision was made in the left caudal septum and a mucoperichondrial flap was elevated in the usual fashion. The flap was elevated under endoscopic visualization and the remainder of the case was performed with endoscopic assistance. Using a D-knife, an incision was made through the cartilaginous septum with care to preserve the appropriate caudal and dorsal ?L-strut? of cartilage. The cartilage was then disarticulated from the bony-cartilaginous junction and the deviated cartilage was removed. Further deviated bone and cartilage was removed from the maxillary crest and posterior bony septum with care to avoid injury to the mucoperichondrial flap using a combination of dissection and Gregory-Brigitte forceps. Once this was completed, the hemitransfixion incision was closed using simple interrupted 4-0 chromic suture. A quilting stitch to reapproximate the mucoperichondrial flaps was then placed using 4-0 plain gut suture on a Chan needle.? The cartilage was set aside and saved for later grafting. Next attention was directed to the turbinates. Using a 0? telescope and 2mm turbinate blade microdebrider, a stab incision was made in the anterior face of the turbinate and dissection was carried posterior to perform submucosal resection. Next the turbinate was outfractured using a blunt instrument. A similar procedure was then performed on the right-hand side without difficulty. The previously harvested septal cartilage was then carved into one appropriately sized alar hu graft.? Marginal incision was made bilaterally through the vestibular nasal skin.? Using curved iris scissors, a pocket was dissected laterally along the lower lateral crura out to the piriform aperture for placement of the graft.? The graft was then placed into the dissected pockets on the left.? Once secure, the incisions were closed with 4-0 chromic suture. Pérez splints covered in mupirocin ointment were placed in the nasal cavity and secured to the membranous septum using a 3-0 Prolene suture. Care of the patient was handed over to anesthesia. The patient was awakened from general anesthesia extubated in the operating room, and transported to the recovery room in stable condition without complication. Russ Aguilar M.D. Estimated Blood Loss 5 Drains No Packing Yes (pérez splint bilaterally) Pathology None sent Complications No immediate complications Condition Stable Disposition PACU
--- NOTE | 2023-07-11 08:30 | WPDHPUPDATE1 ---
History and Physical Update Update Date/Time: 07/11/23 08:30 History and Physical has been reviewed, including an updated exam of the patient. There are NO changes in the patient's condition. Risks, benefits, and alternatives have been discussed and questions answered. Patient agrees to proceed with procedure.
[2023-07-11] MEDS: ceFAZolin 2 GM/D5W 50 ML 2 GM/50 ML BAG IVPB (08:54)
[2023-07-11] MEDS: oxyCODONE HCL (*CRX) 5 MG TAB IR PO (10:57)
== END 2023-07-11 11:48 | disposition home or self-care (01) ==
PROVIDERS: PCP Family Medicine; Visit Provider Otolaryngology
PROC: (CPT 30520; principal; 2023-07-11 09:00)
DX: J34.2 Deviated nasal septum (principal); J34.3 Hypertrophy of nasal turbinates; I10 Essential (primary) hypertension; F17.210 Nicotine dependence, cigarettes, uncomplicated; Z79.1 Long term (current) use of non-steroidal anti-inflammatories (NSAID); Z80.9 Family history of malignant neoplasm, unspecified
CPT/HCPCS: 30520; 30140; 30465; 93005; A9270; J0690; J1100; J2250; J2371; J2405; J2704; J3010; J7120

== ENCOUNTER 2023-07-26 10:41 | Outpatient (CLI) | payer MEDICARE, SELFPAY ==
--- NOTE | ~2023-07-26 | XR_ITS ---
AP and lateral views of the left hip Clinical history: Pain Findings: No acute fracture or dislocation is seen. Osseous alignment is anatomic. Left hip joint is preserved. Soft tissues are unremarkable. Impression: No significant abnormality is seen. Reviewed, dictated and finalized at location M. Impression: No significant abnormality is seen.
--- NOTE | ~2023-07-26 | XR_ITS ---
EXAMINATION: XR lumbar spine 2-3V DATE: 07/26/2023 11:02 INDICATION: Back pain. TECHNIQUE: 3 views of lumbar spine were obtained. COMPARISON: None. FINDINGS: Bone alignment is normal. Vertebral body heights are normal. There is moderately decreased disc height at L3-L4 and L4-L5 and mildly decreased disc height at L5-S1. There is multilevel severe facet joint osteoarthritis IMPRESSION: 1. Moderate lumbar spondylosis. Reviewed, dictated and finalized at location A.
== END 2023-07-26 10:42 | disposition home or self-care (01) ==
LOC: CHSIMG 10:43
PROVIDERS: PCP Family Medicine; Visit Provider Family Medicine
DX: I73.9 Peripheral vascular disease, unspecified (principal); M25.552 Pain in left hip; M54.50 Low back pain, unspecified; M43.06 Spondylolysis, lumbar region
CPT/HCPCS: 72100; 73502

== ENCOUNTER 2023-07-28 08:08 | Outpatient (CLI) | payer MEDICARE, SELFPAY ==
--- NOTE | ~2023-07-28 | US_ITS ---
EXAMINATION: US arterial ankle brachial ind DATE: 07/28/2023 08:34 INDICATION: Peripheral vascular disease. TECHNIQUE: Segmental pressures and plethysmographic and Doppler waveforms of the brachial and lower e xtremity arteries were obtained. COMPARISON: Ultrasound 08/06/2019 FINDINGS: Right and left brachial artery pressures of 134 mm Hg and 132 mm Hg, respectively, are concordant (no rmal difference <= 30 mmHg). The right ankle-brachial index (YANDEL) is 1.02 (normal >= 0.9-1.0). The right great toe-brachial index (TBI) is 0.72 (normal >= 0.65). Arterial Doppler waveforms are biphasic at the ankle. The left YANDEL is 0.52. The left TBI is 0.18. Arterial Doppler waveforms are monophasic at the ankle. IMPRESSION: 1. Moderately decreased left YANDEL with worsening from 08/06/2019, consistent with left-sided arterial oc clusive disease. 2. No significant right-sided arterial occlusive disease. Reviewed, dictated and finalized at location A. IMPRESSION: 1. Moderately decreased left YANDEL with worsening from 08/06/2019, consistent with left-sided arterial occlusive disease. 2. No significant right-sided arterial occlusive disease.
== END 2023-07-28 08:09 | disposition home or self-care (01) ==
LOC: CHSIMG 08:09
PROVIDERS: PCP Family Medicine; Visit Provider Family Medicine
DX: I73.9 Peripheral vascular disease, unspecified (principal)
CPT/HCPCS: 93922

== ENCOUNTER 2024-04-04 08:29 | Outpatient (CLI) | payer MEDICARE, SELFPAY ==
--- NOTE | ~2024-04-04 | US_ITS ---
EXAMINATION: US soft tissue groin RT DATE: 04/04/2024 08:48 INDICATION: Right groin lump. Right groin pain. TECHNIQUE: Multiple grayscale and Doppler ultrasound images of the right groin were obtained. COMPARISON: None FINDINGS: There is no abnormal mass, lymphadenopathy, or hernia in the right inguinal region. IMPRESSION: 1. No abnormality in the right inguinal region. Reviewed, dictated and finalized at location A. OMER ACCOUNT TECHNICIAN
--- OUTSIDE RECORDS SUMMARY | 2024-04-04 08:42 | XMS_ITS | Encounter Summary ---
Author Organization [facility] Address [facility] [facility] [place] [address] [place] [address] Care Team Providers Care Mender Hand Name Role Phone Antoni Barth MD Primary Care Provider Jossue Chavse MD Unavailable Jossue Chaves MD Unavailable Encounter Details Date Type Department Care Team (Late st Contact Info) Description 08/09/2019 Abstract [facility] [address] [place] [address] Jossue Chaves MD [address] [place] [address] Social History Tobacco Use Types Packs/Day Years Used Date Smoking Tobacco: Every Day Alcohol Use Standard Drinks/Week Comments Yes 0 (1 standard drink = 0.6 oz pur e alcohol) drinks 30-40 times per week Sex and Gender Information Value Date Recorded Sex Assigned at Not on file Legal Sex Male 10:17 AM CDT Gender Identity Not on file Sexual Orientation Not on file 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 Not on file Not on file Not on file documented as of this encounter Last Filed Vital Signs Vital Sign Reading Time Taken Comments Blood Pressure 137/72 08/03/2019 11:54 AM CDT Pulse 75 08/03/2019 11:54 AM CDT Temperature 36.7 ??C (98.1 ??F) 08/03/2019 11:54 AM C DT Respiratory Rate - - Oxygen Saturation - - Inhaled Oxygen Concentration - - Weight 62.4 kg (137 lb 9.6 oz) 08/03/2019 11:54 AM CDT Height 174 cm (5' 8.5 ) 08/03/2019 11:54 AM CDT Body Mass Index 20.62 08/03/2019 11:54 AM CDT documented in this encounter Plan of Treatment Upcoming Encounters Date Type Department Care Team (Late st Contact Info) Description 05/22/2024 10:00 AM CDT Appointment [place] [facility] [place] [address] Jossue Chaves MD [address] [place], [place] [id number] 05/22/2024 11:00 AM CDT Office Visit [facility] [address] [place] [address] Jossue Chaves MD [address] [place], [place] [id number] documented as of this encounter Procedures Procedure Name Priority Date/Time Associated Diagnosis Comments CBC W/AUTO DIFF Routine 08/03/2019 COMPREHENSIVE METABOLIC PANEL Routine 08/03/2019 LIPID PANEL Routine 08/03/2019 documented in this encounter Results * (ABNORMAL) CBC W/AUTO DIFF (08/03/2019) WBC 9.2 3.8 - 10.8 RBC 4.38 4.20 - 5.80 HGB 15.0 13.2 - 17.1 HCT 44.0 38.5 - 50.0 MCV 100.5(A) 80.0 - 100.0 MCH 34.2(A) 27.0 - 33.0 MCHC 34.1 32.0 - 36.0 RDW 12.5 11.0 - 15.0 PLT 370 140 - 400 MPV 10.7 7.5 - 12.5 08/03/2019 [facility] Final Result * (ABNORMAL) COMPREHENSIVE METABOLIC PANEL (08/03/2019) SODIUM S/P/B 137 135 - 146 POTASSIUM S/P/B 4.6 3.5 - 5.3 CO2 23 20 - 32 CHLORIDE S/P/B 101 98 - 110 GLUCOSE 82 65 - 99 mg/dL CALCIUM S/P/B 9.1 8.6 - 10.3 BUN 10 7 - 25 CREATININE S/P/B 0.91 0.7 - 1.3 EGFR AFR. AMER. 104(A) <=90 EGFR NON-AFR. AMER. 90 <=90 ALKALINE PHOSPHATASE S/P/B 70 35 - 144 ALT 14 9 - 46 AST 20 10 - 35 BILIRUBIN TOTAL S/P/B 0.4 0.2 - 1.2 ALBUMIN S/P/B 4.4 3.5 - 5.0 TOTAL PROTEIN S/P/B 0.4 0.2 - 1.2 08/03/2019 [facility] Final Result * LIPID PANEL (08/03/2019) CHOLESTEROL 193 HDL 45 TRIGLYCERIDES 214 NON HDL CHOLESTEROL 148 CHOL/HDL RATIO 4.3 LDL (CALCULATED) 115 08/03/2019 [facility] Final Result documented in this encounter Visit Diagnoses Not on filedocumented in this encounter Care Teams Mender Hand Relationship Specialty Start Date End Date Antoni Barth MD [address] [place] [address] PCP - General FAMILY PRACTICE 08/07/19 Jossue Chaves MD [address] [place] [address] Vascular/Ui Lead Developer INTERNAL MEDICINE 08/07/19 3 Jossue Chaves MD [address] [place] [address] Consulting Physician INTERNAL MEDICINE 05/11/22 documented as of this encounter
--- OUTSIDE RECORDS SUMMARY | 2024-04-04 08:42 | XMS_ITS | Clinical Summary ---
Author Organization [facility] Address [address] [place] [address]. [place] [address] [place] [address] Care Team Providers Care Correctional Supply Supervisor Name Role Phone Antoni Barth MD Primary Care Provider [phone] Jossue Chaves MD Unavailable Allergies No known active allergies Medications metoprolol succinate ER 25 MG 24 hr tablet Take 1 tablet by mouth daily. 07/11/2019 Active atorvastatin 40 MG tablet 08/08/2019 Active aspirin EC (ECOTRIN) 81 MG tablet Take 1 tablet (81 mg total) by mouth daily. 90 tablet 3 11/10/2021 Active predniSONE (DELTASONE) 10 mg tablet 02/18/2022 Active cilostazol (PLETAL) 100 MG tablet TAKE ONE TABLET BY MOUTH TWICE A DAY 180 tablet 6 06/28/2022 Active Active Problems Problem Noted Date Diagnosed Date Hyperlipidemia, unspecified hyperlipidemia type 08/19/2020 PAD (peripheral artery disease) 08/21/2019 Smoker 08/21/2019 Leg pain, bilateral 08/21/2019 Family History Medical History Relation Comments DVT after Hip surgery Father Relation Status Comments Father Maternal Grandfather Maternal Grandmother Mother Alive Paternal Grandfather Paternal Grandmother Social History Tobacco Use Types Packs/Day Years Used Date Smoking Tobacco: Every Day Cigarettes 1.5 45 Smokeless Tobacco: Never Tobacco Cessation:Ready to Q uit: Not Asked; Counseling Given: Not Answered Alcohol Use Standard Drinks/Week Comments Yes 20 (1 standard drink = 0.6 oz pu re alcohol) drinks 30-40 times per week Sex and Gender Information Value Date Recorded Sex Assigned at Not on file Legal Sex Male 10:17 AM CDT Gender Identity Not on file Sexual Orientation Not on file 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 Not on file Not on file Not on file Last Filed Vital Signs Vital Sign Reading Time Taken Comments Blood Pressure 132/60 05/10/2023 11:15 AM ENAMEL BURNER Pulse 75 05/10/2023 11:15 AM ENAMEL BURNER Temperature 36.7 ??C (98.1 ??F) 08/03/2019 11:54 AM C DT Respiratory Rate 18 05/10/2023 11:15 AM ENAMEL BURNER Oxygen Saturation 99% 05/10/2023 11:15 AM ENAMEL BURNER Inhaled Oxygen Concentration - - Weight 60.8 kg (134 lb) 05/10/2023 11:15 AM ENAMEL BURNER Height 172.7 cm (5' 8 ) 05/10/2023 11:15 AM ENAMEL BURNER Body Mass Index 20.37 05/10/2023 11:15 AM ENAMEL BURNER Plan of Treatment Upcoming Encounters Date Type Department Care Team (Late st Contact Info) Description 05/22/2024 10:00 AM CDT Appointment [place] [place] [address] Jossue Chaves MD [address] [place], [place] [id number] 05/22/2024 11:00 AM CDT Office Visit [facility] [address] [place] [address] Jossue Chaves MD [address] [place], [place] [id number] Health Maintenance Due Date Last Done Comments ASCVD Statin 1956 Colorectal Cancer Screening Colonoscopy (10 Years) 1956 Pneumococcal Vaccine: 65+ Years (1 of 2 - PCV) 1962 Hepatitis C 1974 DTaP, Tdap and Td Vaccines ( 1 - Tdap) 10/15/1975 Lung Cancer Screening 2006 Zoster Vaccines (1 of 2) 2006 ASCVD LDL 08/02/2020 08/03/2019 Annual Medicare Wellness Visit 2021 COVID-19 Vaccine (1 - 2023-2 5 season) 2023 Influenza Adult (#1) 2023 RSV Immunization or 60+ Years (1 - 1-dose 75+ series) 10/15/2031 AAA SCREENING Completed 01/13/2022, 12/03/2019 Meningococcal B Vaccine Aged Out No l onger eligible based on patient's age to complete this topic Meningococcal Vaccine Aged Out No vidhya puneet eligible based on patient's age to complete this topic RSV Immunizations Under 20 Months Aged Out No longer eligible b ased on patient's age to complete this topic Procedures Procedure Name Priority Date/Time Associated Diagnosis Comments CTA AORTO ILIOFEM RUNOFF Routine 01/13/2022 8:51 AM ENAMEL BURNER PAD (peripheral artery disease) Hyperlipidemia, unspecified hyperlipidemia type LIPID PANEL Routine 08/03/2019 from Last 3 Months or Most Recently Relevant to Health Maintenance Results * CTA AORTO ILIOFEM RUNOFF (01/13/2022 8:51 AM ENAMEL BURNER) Anatomical Region Laterality Modality Abdomen, Pelvis, Extremity Compu kendell Tomography 01/15/2022 12:4 3 PM ENAMEL BURNER Impressions 01/15/2022 2:09 PM ENAMEL BURNER IMPRESSION: 1. Overall, findings show little change compared to 12/03/2019. 2. The greatest degree of stenosis with regard to the patient's left claudication is a bulky, calcific lesion at the origin of the left common iliac artery, resulting in roughly 70% stenosis. 3. Additional I'll to moderate stenoses are seen in the left external iliac artery and left SFA as above. 4. Two-vessel runoff to the right foot, single vessel runoff to the left foot via the peroneal artery, which reconstitutes the distal posterior tibial. 5. No acute nonvascular findings. Ordered By: JOSSUE CHAVES Interpreted By: Kristian Nina MD, 01/15/2022 12:43 PM Narrative 01/15/2022 2:09 PM ENAMEL BURNER STUDY: CT angiogram of the abdominal aorta, pelvis, and bilateral lower extremities. INDICATION: ??Left leg claudication TECHNIQUE: Multidetector CT from the chest, through the feet was acquired using thin collimation, ??after the administration of 93 cc Isovue 370, intravenously. ??Delayed images were obtained. ??Additionally, multiplanar reformats including volume rendered images and MIPs were created on a separate workstation with these images sent to PACS. ??A dose lowering technique was used for this procedure, which may include, but is not limited to, dose reduction techniques, automated exposure control, the use of a iterative reconstruction, and ALARA (as low as reasonably achievable)/image gently techniques. COMPARISON: ??Duplex ultrasound 10/30/2021, CT 8 12/03/2019 ??. FINDINGS: Abdominal Aorta and Visceral Arteries: Abdominal aorta is diffusely calcified but without aneurysm or dissection. There is no significant aortic stenosis. Plaque is present at the celiac and superior mesenteric artery origins, but with no significant stenosis. There is also heavily calcified plaque at the renal artery origins, but these are also widely patent. Inferior mesenteric artery is patent with at least moderate origin stenosis. Right lower extremity runoff: There is diffuse calcific plaque in the szymanski of the right common iliac artery, but without significant stenosis. Right internal iliac is patent. There is mild external iliac disease with perhaps up to about 30% stenosis at the origin and minimal stenosis elsewhere. Right common femoral artery shows mild disease without stenosis. Profunda is patent. Mild mixed calcific and noncalcific SFA plaque is seen throughout the course of the vessel, but only very minimal degrees of stenosis are present, less than 30%. Right popliteal artery is widely patent. Below the knee, there is a normal trifurcation. The anterior tibial artery is occluded in the mid calf. There is mild tibioperoneal trunk disease without high-grade stenosis. Both the peroneal and posterior tibial arteries are patent to the foot with only minimal disease, with the posterior tibial being the dominant runoff vessel. Dorsalis pedis is not opacified. Left lower extremity runoff: There is redemonstration of moderate to severe calcific stenosis at the origin of the left common iliac artery, estimated at about 70% severity. Additional calcific stenosis in the proximal external iliac is estimated at about 30-40% severity, with only mild less than 30% stenosis throughout the rest of the relatively diffusely diseased external iliac. There is left common femoral artery disease with less than 50% stenosis. Profunda is patent. Stable, approximately 50% stenosis is seen in the adductor canal segment of the left superficial femoral artery. There is only mild popliteal artery disease. Below the knee, there is a normal trifurcation. Anterior tibial artery is occluded in the mid calf. There is mild calcific stenosis of the tibioperoneal trunk. The posterior tibial artery is diminutive, and occluded in the mid to distal calf. Mild diffuse peroneal artery disease is noted, and the vessel reconstitutes the distal posterior tibial artery at the level of the ankle. Dorsalis pedis is not opacified. Nonvascular findings: Chest: Heart size is normal. There is no pleural or pericardial effusion. Mild emphysematous changes are noted in the lung bases. Abdomen: The liver, gallbladder, biliary tree, pancreas, spleen, and adrenal glands are unremarkable. The nephrograms are symmetric. Localized renal cortical thinning is seen at the left upper pole, stable. There are simple renal cysts, which do not require specific additional follow-up based on ACR guidelines. There is no evidence of abnormal bowel distention or obstruction. ??Sigmoid diverticulosis is noted without evidence of acute diverticulitis. Within the abdomen there is no abnormal fluid, mass, or adenopathy. ?? Pelvis: The urinary bladder is unremarkable. The prostate is mildly enlarged. Prominent internal hemorrhoids are noted in the rectum. There is no pelvic adenopathy or free fluid. No destructive osseus lesion is identified. Procedure Note Kristian Nina MD - 01/15/2022 STUDY: CT angiogram of the abdominal aorta, pelvis, and bilateral lowerextremities. INDICATION: Left leg claudication TECHNIQUE: Multidetector CT from the chest, through the feet was acquiredusing thin collimation, after the administration of 93 cc Isovue 370,intravenously. Delayed images were obtained. Additionally, multiplanarreformats including volume rendered images and MIPs were created on [employer] workstation with these images sent to PACS. A dose loweringtechnique was used for this procedure, which may include, but is notlimited to, dose reduction techniques, automated exposure control, the useof a iterative reconstruction, and ALARA (as low as reasonablyachievable)/image gently techniques. COMPARISON: Duplex ultrasound 10/30/2021, CT 8 12/03/2019 . FINDINGS: Abdominal Aorta and Visceral Arteries: Abdominal aorta is diffusely calcified but without aneurysm or dissection.There is no significant aortic stenosis. Plaque is present at the celiacand superior mesenteric artery origins, but with no significant stenosis.There is also heavily calcified plaque at the renal artery origins, butthese are also widely patent. Inferior mesenteric artery is patent with atleast moderate origin stenosis. Right lower extremity runoff: There is diffuse calcific plaque in the szymanski of the right common iliacartery, but without significant stenosis. Right internal iliac is patent.There is mild external iliac disease with perhaps up to about 30% stenosisat the origin and minimal stenosis elsewhere. Right common femoral arteryshows mild disease without stenosis. Profunda is patent. Mild mixedcalcific and noncalcific SFA plaque is seen throughout the course of thevessel, but only very minimal degrees of stenosis are present, less than30%. Right popliteal artery is widely patent. Below the knee, there is anormal trifurcation. The anterior tibial artery is occluded in the midcalf. There is mild tibioperoneal trunk disease without high-gradestenosis. Both the peroneal and posterior tibial arteries are patent tothe foot with only minimal disease, with the posterior tibial being thedominant runoff vessel. Dorsalis pedis is not opacified. Left lower extremity runoff: There is redemonstration of moderate to severe calcific stenosis at theorigin of the left common iliac artery, estimated at about 70% severity.Additional calcific stenosis in the proximal external iliac is estimatedat about 30-40% severity, with only mild less than 30% stenosis throughoutthe rest of the relatively diffusely diseased external iliac. There isleft common femoral artery disease with less than 50% stenosis. Profundais patent. Stable, approximately 50% stenosis is seen in the adductorcanal segment of the left superficial femoral artery. There is only mildpopliteal artery disease. Below the knee, there is a normal trifurcation.Anterior tibial artery is occluded in the mid calf. There is mild calcificstenosis of the tibioperoneal trunk. The posterior tibial artery isdiminutive, and occluded in the mid to distal calf. Mild diffuse peronealartery disease is noted, and the vessel reconstitutes the distal posteriortibial artery at the level of the ankle. Dorsalis pedis is not opacified. Nonvascular findings: Chest: Heart size is normal. There is no pleural or pericardial effusion. Mildemphysematous changes are noted in the lung bases. Abdomen: The liver, gallbladder, biliary tree, pancreas, spleen, and adrenal glandsare unremarkable. The nephrograms are symmetric. Localized renal corticalthinning is seen at the left upper pole, stable. There are simple renalcysts, which do not require specific additional follow-up based on ACRguidelines. There is no evidence of abnormal bowel distention or obstruction.Sigmoid diverticulosis is noted without evidence of acute diverticulitis.Within the abdomen there is no abnormal fluid, mass, or adenopathy. Pelvis: The urinary bladder is unremarkable. The prostate is mildly enlarged.Prominent internal hemorrhoids are noted in the rectum. There is no pelvicadenopathy or free fluid. No destructive osseus lesion is identified. IMPRESSION: 1. Overall, findings show little change compared to 12/03/2019. 2. The greatest degree of stenosis with regard to the patient's leftclaudication is a bulky, calcific lesion at the origin of the left commoniliac artery, resulting in roughly 70% stenosis. 3. Additional I'll to moderate stenoses are seen in the left externaliliac artery and left SFA as above. 4. Two-vessel runoff to the right foot, single vessel runoff to the leftfoot via the peroneal artery, which reconstitutes the distal posteriortibial. 5. No acute nonvascular findings. Ordered By: JOSSUE CHAVES Interpreted By: Kristian Nina MD, 01/15/2022 12:43 PM Jossue Chaves MD CT Final Result * LIPID PANEL (08/03/2019) CHOLESTEROL 193 HDL 45 TRIGLYCERIDES 214 NON HDL CHOLESTEROL 148 CHOL/HDL RATIO 4.3 LDL (CALCULATED) 115 08/03/2019 us [facility] Final Result from Last 3 Months or Most Recently Relevant to Health Maintenance Insurance [employer] Advance Directives Documents on File Type Date Recorded Patient Mortgage Lender Expl anation Power of [employer] Architect 09/20/2019 2:31 PM Melvin Syed - HCA/Son Healthcare Agents on File Name Relationship Healthcare Agent Relationship Communication Melvin Syed ([employer]) Son Health Care Agent [phone] ([place] ) Care Teams Correctional Supply Supervisor Relationship Specialty Start Date End Date Antoni Barth MD [address] [place] [address] PCP - General FAMILY PRACTICE 08/07/19 Jossue Chaves MD [address] [place] [address] Consulting Physician INTERNAL MEDICINE 05/11/22
--- OUTSIDE RECORDS SUMMARY | 2024-04-04 08:42 | XMS_ITS | Clinical Summary ---
Author Organization [facility] Address [address] [place] [address] Phone Care Team Providers Care Boring Inspector Name Role Phone Antoni Barth MD Primary Care Provider [phone] Allergies No known active allergies Medications No known medications Social History Tobacco Use Types Packs/Day Years Used Date Smoking Tobacco: Every Day Cigarettes Smokeless Tobacco: Never Alcohol Use Standard Drinks/Week Comments Yes 0 (1 standard drink = 0.6 oz pur e alcohol) Comments Unknown Sex and Gender Information Value Date Recorded Sex Assigned at Not on file Legal Sex Female 9:23 AM CDT Gender Identity Not on file Sexual Orientation Not on file Last Filed Vital Signs Vital Sign Reading Time Taken Comments Blood Pressure 137/71 12/20/2018 1:29 PM CDT Pulse 76 12/20/2018 1:29 PM CDT Temperature 36.8 ??C (98.3 ??F) 12/20/2018 8:35 AM CD T Respiratory Rate 16 12/20/2018 1:29 PM CDT Oxygen Saturation 98% 12/20/2018 1:29 PM CDT Inhaled Oxygen Concentration - - Weight - - Height - - Body Mass Index - - Plan of Treatment Health Maintenance Due Date Last Done Comments DTAP/TDAP/TD VACCINES (1 - Tdap) 10/15/1975 PNEUMOCOCCAL VACCINE 65+ YEARS (1 of 2 - PCV) 10/14/18 76 BREAST CANCER SCREENING 1996 COLORECTAL SCREENING 2001 Colorectal Cancer Screening 2001 FIT-DNA Q 3 years 2001 FIT/FOBT Q 1 year 2001 Flex Sig/CT Colonography Q 5 years 2001 ZOSTER VACCINE (1 of 2) 2006 OSTEOPOROSIS SCREENING 2021 INFLUENZA VACCINE (#1) 2023 RSV VACCINE (60+ or ) (1 - 1-dose 75+ series) 10/15/2031 Insurance [facility] BLUE ACCESS/TRUE BLUE PPO Care Teams Boring Inspector Relationship Specialty Start Date End Date Antoni Barth MD [address] [place] [id number] PCP - General Family Practice 12/01/18
--- OUTSIDE RECORDS SUMMARY | 2024-04-04 08:43 | XMS_ITS | CONTINUITY OF CARE DOCUMENT ---
Author Name donovan man Address Unknown Organization [facility] Address [address] [place] [address] [address] [place] [address] Phone [phone] Care Team Providers Care Sales Manager [place] Name Role Phone Malena FERRELL, Jeff Unavailable [phone] EVE JOHNSON MD Unavailable [phone] EVE JOHNSON MD Unavailable PROBLEMS Condition Status Date Provider Notes Cardiology examination active Jeff plascencia MD PVD active Jeff Guy MD Hyperlipidemia active Jeff Guy MD Leg pain active Jeff Guy MD Back pain, low active Jeff Guy MD Smoker active Jeff Guy MD HTN essential active Jeff Guy MD Abnormal EKG active Jeff Guy MD ENCOUNTERS Date Type Provider Location Encounter Diag nosis 5 - 6 In-person encounter Office Visit Jeff Guy MD [facility] 3 - 3 In-person encounter Office Visit Jeff Guy MD [facility] Cardiology examinationPVDHyperlipidemiaLeg painBack pain, lowSmokerHTN essentialAbnormal EKG VITAL SIGNS Date Observation Value Provider Body Mass Index (Ratio) 19.61 kg/m2 Shiva Singh weight E&M 129 [lb_av] Cee Winn pulse rate 82 /min Cee Pa respiratory rate E&M 14 /min Cee Pa oxygen saturation, oximetry 98 % Cee Pa blood pressure, diastolic 78 mm[Hg] Va lerie Pa blood pressure, systolic 151 mm[Hg] Evelyn ynes Pa blood pressure, cuff size regular Va lerie Pa height E&M 68 [in_i] Cee Pa Body Mass Index (Ratio) 20.07 kg/m2 Geor uday Guy MD blood pressure, cuff size regular Ke rri Grueneshlomoelder blood pressure, diastolic 80 mm[Hg] Ke rri Gruenenfelder blood pressure, systolic 142 mm[Hg] Sylvia ri Ganeshelder oxygen saturation, oximetry 97 % Malka Ganeshelder respiratory rate E&M 12 /min Malka Darvin jasonnfelder pulse rate 84 /min Malka Dalenfe lder weight E&M 132 [lb_av] Malka Marinozahiranenfe lder height E&M 68 [in_i] Malka Dalenfe lder ALLERGIES No Known Drug Allergies RESULTS Date Observation Value Provider Reference Range Interpretation Location 8 prothrombin time (patient) 9.5 s [facility] 9.0-11.5 Normal 8 international normalized ratio (INR) 0.9 [facility] Normal 8 basophils as percent of blood leukocytes 1.5 % [facility] Normal 8 eosinophils as percent of blood leukocytes 2.4 % [facility] Normal 8 monocyte count, blood 8.7 % [facility] Normal 8 lymphocyte count, blood 23.7 % [facility] Normal 8 neutrophils as percent of blood leukocytes 63.7 % [facility] Normal 8 basophils, absolute, manual 131 cells/mcL [facility] 0-200 Normal 8 eosinophils, absolute, manual 209 cells/mcL [facility] 15-500 Normal 8 monocytes, absolute, manual 757 cells/mcL [facility] 200-950 Normal 8 lymphocytes, absolute 2062 CELLS/UL [facility] 850-3900 Normal 8 Absolute Neutrophil count 5542 cells/mcL [facility] 4199-6245 Normal 8 mean platelet volume 10.3 fL [facility] 7.5-12.5 Normal 8 platelet count 363 THOUSAND/U L [facility] 140-400 Normal 8 red blood cell distribution width 12.7 % [facility] 11.0-15.0 Normal 8 mean corpuscular hemoglobin concentration, RBC 33.9 G/DL [facility] 32.0-36.0 Normal 8 mean corpuscular hemoglobin, RBC 33.8 pg [facility] 27.0-33.0 High 8 mean corpuscular volume, RBC 99.8 fL [facility] 80.0-100.0 Normal 8 hematocrit, blood 42.5 % [facility] 38.5-50.0 Normal 8 hemoglobin electrophoresis, blood 14.4 [facility] 13.2-17.1 Normal 8 erythrocyte (RBC) count 4.26 MILLION/UL [facility] 4.20-5.80 Normal 8 leukocyte (white blood cells) count, blood 8.7 THOUSAND/U L [facility] 3.8-10.8 Normal 8 calcium, serum 9.2 mg/dL [facility] 8.6-10.3 Normal 8 carbon dioxide, venous blood 26 mmol/L [facility] 20-32 Normal 8 chloride, serum 97 mmol/L [facility] 98-110 Low 8 potassium, serum 4.3 mmol/L [facility] 3.5-5.3 Normal 8 sodium, serum 133 mmol/L [facility] 135-146 Low 8 urea nitrogen/creatinin e ratio, serum SEE NOTE: (calc) [facility] 6-22 8 creatinine, serum 1.00 mg/dL [facility] 0.70-1.35 Normal 8 urea nitrogen, blood 13 mg/dL [facility] 7-25 Normal 8 blood glucose, random 94 mg/dL [facility] 65-99 Normal 8 cholesterol, non-HDL, total 76 MG/DL (CALC) [facility] <130 Normal 8 cholesterol/HDL ratio, serum, percent 2.1 (calc) [facility] <5.0 Normal 8 LDL cholesterol, serum 59 MG/DL (CALC) [facility] Normal 8 triglyceride, serum, fasting 90 mg/dL [facility] <150 Normal 8 HDL cholesterol, serum 71 mg/dL [facility] > OR = 40 Normal 8 cholesterol, serum 147 mg/dL [facility] <200 Normal HISTORY OF MEDICATION USE Medication Status Instructions Dates Provider Indications Com ments Adult Low Dose Aspirin 81 mg tablet,delayed release (DR/EC) active Take 1 tablet by mouth once a day Priya Thomas clopidogrel 75 mg tablet active Take 1 tablet by mouth once a day Priya Thomas cilostazol 100 mg tablet completed take 1 pill twice a day - Jeff Guy MD metoprolol succinate 25 mg tablet extended release 24 hr active take 1 pill a day Malka Trujillo rosuvastatin 40 mg tablet active take 1 pill a day Malka Trujillo SOCIAL HISTORY Date Observation Value Provider smoking history, total pack/day 1 Jeff Guy MD cigarette use yes Jeff Guy MD smoking status Current every day smoker Darvin Guy MD number of grandchildren Jeff Guy MD smoking history, total pack/day 1.5 Jeff Guy MD cigarette use yes Jeff Guy MD smoking status Current every day smoker Darvin Guy MD INSURANCE PROVIDERS Payer name Policy type / Coverage type Barrett red libertarian ID AETNA MEDICARE [employer] PPO Medicare [id number] ADVANCE DIRECTIVES Name Date DISCUSSED - NO DECISION MADE TREATMENT PLAN Date Name Performer Cardiology:This visi t has been a part of the consistent, comprehensive, and ongoing management of the chronic medical condition(s) listed above for the patient. BP today: 151/78 P rior BP: 142/80 (08/08/2023) Labs Reviewed: C reat: 1.00 (08/13/2023) C hol: 147 (08/13/2023) HDL: 71 (08/13/2023) LDL: 59 MG/DL (CALC) (08/13/2023) T (08/13/2023) His updated medication list for this problem includes: Metoprolol Succinate 25 Mg Tablet Extended Release 24 Hr (Metoprolol succinate) ..... Take 1 pill a day Jeff Guy MD Cardiology Jeff Villagomez Cardiology:The Patie nt was reencouraged to stop smoking. T his visit has been a part of the consistent, comprehensive, and ongoing management of the chronic medical condition(s) listed above for the patient. Jeff Guy MD Cardiology:This visi t has been a part of the consistent, comprehensive, and ongoing management of the chronic medical condition(s) listed above for the patient. His updated medication list for this problem includes: Rosuvastatin 40 Mg Tablet (Rosuvastatin) ..... Take 1 pill a day Jeff Guy MD Cardiology:This visi t has been a part of the consistent, comprehensive, and ongoing management of the chronic medical condition(s) listed above for the patient. The following medications were removed from the medication list: Cilostazol 100 Mg Tablet (Cilostazol) ..... Take 1 pill twice a day His updated medication list for this problem includes: Clopidogrel 75 Mg Tablet (Clopidogrel) ..... Take 1 tablet by mouth once a day Jeff Guy MD Cardiology Jeff Villagomez Cardiology Jeff Villagomez Cardiology Jeff Villagomez Cardiology Jeff Villagomez Cardiology Jeff Villagomez Cardiology: B P today: 142/80 His updated medication list for this problem includes: Metoprolol Succinate 25 Mg Tablet Extended Release 24 Hr (Metoprolol succinate) ..... Take 1 pill a day Jeff Guy MD Cardiology: H is updated medication list for this problem includes: Cilostazol 100 Mg Tablet (Cilostazol) ..... Take 1 pill twice a day Jeff Guy MD Date Name Arterial Duplex LLE PROTHROMBIN TIME WIT H INR LIPID PANEL CBC (INCLUDES DIFF/P LT) BASIC METABOLIC PANE L W/EGFR HISTORY OF PROCEDURES Procedure Date Procedure Name Provider Procedure Notes S tatus Complex e/m visit add on Jeff Guy MD completed EKG Jeff Guy MD complet ed
== END 2024-04-04 08:30 | disposition home or self-care (01) ==
LOC: CHSIMG 08:30
PROVIDERS: PCP Family Medicine; Visit Provider Family Medicine
DX: R19.09 Other intra-abdominal and pelvic swelling, mass and lump (principal); R22.41 Localized swelling, mass and lump, right lower limb
CPT/HCPCS: 76882

== ENCOUNTER 2025-03-01 09:50 | Outpatient (CLI) | payer MEDICARE, SELFPAY ==
--- NOTE | ~2025-03-01 | XR_ITS ---
XR lumbar spine 2-3V 03/01/2025 10:05 Indication: Chronic low back pain for 3 years Procedure: 3 views lumbar spine Comparison: 07/26/2023 Findings: There is disc narrowing at all lumbar levels. There is facet hypertrophy at L3-4 through L5-S1. There is normal lumbar alignment. No fracture or traumatic malalignment. Pedicles intact. There is a left common iliac artery stent. Transverse processes are normal. Sacrum is unremarkable. Impression: 1: Moderate-severe lumbar spondylosis. Reviewed, dictated and finalized at location O. ARE MANAGER Impression: 1: Moderate-severe lumbar spondylosis.
--- OUTSIDE RECORDS SUMMARY | 2025-03-01 09:56 | XMS_ITS | Clinical Summary ---
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 Not on file Not on file Last Filed Vital Signs Vital Sign Reading Time Taken Comments Blood Pressure 132/60 05/10/2023 11:15 AM LEATHER SOFTENER Pulse 75 05/10/2023 11:15 AM LEATHER SOFTENER Temperature 36.7 C (98.1 F) 08/03/2019 11:54 AM CDT Respiratory Rate 18 05/10/2023 11:15 AM LEATHER SOFTENER Oxygen Saturation 99% 05/10/2023 11:15 AM LEATHER SOFTENER Inhaled Oxygen Concentration - - Weight 60.8 kg (134 lb) 05/10/2023 11:15 AM LEATHER SOFTENER Height 172.7 cm (5' 8) 05/10/2023 11:15 AM LEATHER SOFTENER Body Mass Index 20.37 05/10/2023 11:15 AM LEATHER SOFTENER Plan of Treatment Health Maintenance Due Date Last Done Comments ASCVD Statin 1956 Colorectal Cancer Screening Colonoscopy (10 Years) 1956 Hepatitis C 1974 DTaP, Tdap and Td Vaccines ( 1 - Tdap) 10/15/1975 Pneumococcal Vaccine: 50+ Ye ars (1 of 2 - PCV) 10/15/1975 Zoster Vaccines (1 of 2) 2006 ASCVD LDL 08/02/2020 08/03/2019 Annual Medicare Wellness Visit 2021 COVID-19 Vaccine (1 - 2024-2 6 season) 2024 Influenza Adult (#1) 2024 RSV Immunization or 60+ Years (1 - 1-dose 75+ series) 10/15/2031 Hepatitis A Vaccines Aged Out No long er eligible based on patient's age to complete this topic Meningococcal B Vaccine Aged Out No l onger eligible based on patient's age to complete this topic Meningococcal Vaccine Aged Out No vidhya puneet eligible based on patient's age to complete this topic RSV Immunizations Under 20 Months Aged Out No longer eligible based on patient's age to complete this topic Procedures Procedure Name Priority Date/Time Associated Diagnosis Comments LIPID PANEL Routine 08/03/2019 from Last 3 Months or Most Recently Relevant to Health Maintenance Results * LIPID PANEL (08/03/2019) CHOLESTEROL 193 HDL 45 TRIGLYCERIDES 214 NON HDL CHOLESTEROL 148 CHOL/HDL RATIO 4.3 LDL (CALCULATED) 115 08/03/2019 us Doc [facility] Final Result from Last 3 Months or Most Recently Relevant to Health Maintenance Insurance AETNA MEDICARE Advance Directives Documents on File Type Date Recorded Patient Capsule Maker Expl anation Power of Director Human Services 09/20/2019 2:31 PM Melvin Syed - [facility] Healthcare Agents on File Name Relationship Healthcare Agent Relationship Communication Melvin Syed ([facility]) Son Health Care Agent [phone] (Mobile ) Care Teams Tail Board Worker Relationship Specialty Start Date End Date Antoni Barth MD [address] [place] [address] PCP - General FAMILY PRACTICE 08/07/19
--- OUTSIDE RECORDS SUMMARY | 2025-03-01 09:56 | XMS_ITS | Clinical Summary ---
Author Organization [facility] Address [address] [place] [address] Phone Care Team Providers Care Audio Production Instructor Name Role Phone Antoni Barth MD Primary Care Provider [phone] Allergies No known active allergies Medications No [...] 76 12/20/2018 1:29 PM CDT Temperature 36.8 C (98.3 F) 12/20/2018 8:35 AM CDT Respiratory Rate 16 12/20/2018 1:29 PM CDT Oxygen Saturation 98% 12/20/2018 1:29 PM CDT Inhaled Oxygen Concentration - - Weight - - Height - - Body Mass Index - - Plan of Treatment Health Maintenance Due Date Last Done Comments DTAP/TDAP/TD VACCINES (1 - Tdap) 10/15/1975 PNEUMOCOCCAL VACCINE 50+ YEARS (1 of 2 - PCV) 10/14/18 76 BREAST CANCER SCREENING 1996 COLORECTAL SCREENING 2001 Colorectal Cancer Screening 2001 FIT-DNA Q 3 years 2001 FIT/FOBT Q 1 year 2001 Flex Sig/CT Colonography Q 5 years 2001 ZOSTER VACCINE (1 of 2) 2006 OSTEOPOROSIS SCREENING 2021 INFLUENZA VACCINE (#1) 2024 RSV VACCINE (60+ or ) (1 - 1-dose 75+ series) 10/15/2031 Insurance [facility] BLUE ACCESS/TRUE BLUE PPO Care Teams Audio Production Instructor Relationship Specialty Start Date End Date Antoni Barth MD [address] [place] [id number] PCP - General Family Practice 12/01/18
--- OUTSIDE RECORDS SUMMARY | 2025-03-01 09:56 | XMS_ITS | Encounter Summary ---
Author Organization 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 Not on file Not on file documented as of this encounter Last Filed Vital Signs Vital Sign Reading Time Taken Comments Blood Pressure 137/72 08/03/2019 11:54 AM CDT Pulse 75 08/03/2019 11:54 AM CDT Temperature 36.7 C (98.1 F) 08/03/2019 11:54 AM CDT Respiratory Rate - - Oxygen Saturation - - Inhaled Oxygen Concentration - - Weight 62.4 kg (137 lb 9.6 oz) 08/03/2019 11:54 AM CDT Height 174 cm (5' 8.5) 08/03/2019 11:54 AM CDT Body Mass Index 20.62 08/03/2019 11:54 AM CDT documented in this encounter Plan of Treatment Not on file documented as of this encounter Procedures Procedure [...] on filedocumented in this encounter Care Teams Medicaid Plan Compliance Director Relationship Specialty Start Date End Date Antoni Barth MD [address] [place] [address] PCP - General FAMILY PRACTICE 08/07/19 Jossue Chaves MD [address] [place] [address] Vascular/Black And White Printer Operator INTERNAL MEDICINE 08/07/19/08/06 3 documented as of this encounter
== END 2025-03-01 09:51 | disposition home or self-care (01) ==
LOC: CHSIMG 09:53
PROVIDERS: PCP Family Medicine; Visit Provider Family Medicine
DX: M54.50 Low back pain, unspecified (principal); M43.06 Spondylolysis, lumbar region
CPT/HCPCS: 72100